=== PATIENT | male | born 1990 | race Caucasian/White ===

== ENCOUNTER 2017-02-21 21:34 | Emergency (ER) | payer BC ==
[~2017-02-21] VITALS: Ht 185.4 cm; Wt 117.9 kg
--- NOTE | 2017-02-21 22:23 | NUR ---
Pt has abscess on edge of palm on left hand x 3-4 weeks, pain when palpated, PMS intact. Pt denies dizziness, n/v, CP, SOB, no other complaints, no distress noted.
[2017-02-21 22:33] VITALS: BP 135/75
[2017-02-21] MEDS ORDERED: LIDOCAINE 1% INJ 50 ML MDV IJ ONE (22:38)
--- NOTE | 2017-02-21 23:34 | NUR ---
Patient discharged to home in stable condition. RX, Written and verbal after care instructions given. Patient verbalizes understanding of instruction.
== END 2017-02-21 23:39 | disposition home or self-care (01) ==
LOC: ER 21:39
DX: L02.512 Cutaneous abscess of left hand (principal)
CPT/HCPCS: 10060; 99283; A4606; A6402; A6407; J3490; Z7610